=== PATIENT | male | born 1995 | race Caucasian/White ===

== ENCOUNTER 2016-08-21 19:25 | Emergency (ER) | payer OTHER ==
[2016-08-21] MEDS ORDERED: SILVADENE 50 GM TP ONE ×2 (19:42→19:49)
[2016-08-21] MEDS ORDERED: Norco 10/325 MG Tablet PO ONE (19:49)
[2016-08-21] MEDS ORDERED: Norco 10/325 MG Tablet ONE (19:52)
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
[2016-08-21 20:17] VITALS: BP 141/59; PULSE 80; O2SAT 97
== END 2016-08-21 20:17 | disposition home or self-care (01) ==
LOC: ED 19:25
DX: T22.10XA Burn of first degree of shoulder and upper limb, except wrist and hand, unspecified site, initial encounter (principal); X16.XXXA Contact with hot heating appliances, radiators and pipes, initial encounter
CPT/HCPCS: 99283; A9270-GY

== ENCOUNTER 2017-08-04 21:04 | Emergency (ER) | payer BC, OTHER ==
[2017-08-04] MEDS ORDERED: Xopenex 1.25 MG/0.5 ML UD NEBULE IH ONE ×2 (21:13→23:10)
[2017-08-04] MEDS ORDERED: ROCEPHIN 1 Gm-D5w 50 ml Bag** 1 G/50 ML IVPB IV STA (21:14)
[2017-08-04] MEDS ORDERED: Zithromax 250 MG TABLET PO ONE (21:14)
[2017-08-04] MEDS ORDERED: Sodium Chloride 0.9% 1000 ML 1,000 ML IV SCH (21:15)
[2017-08-04] MEDS ORDERED: Sodium Chloride 0.9% 1000 ML 1,000 ML IV STA (21:15)
[2017-08-04] MEDS ORDERED: Magnesium 1 Gm / 100 Ml D5W*** 100 ML IV ONE ×2 (21:16→21:49)
--- NOTE | 2017-08-04 21:21 | ERPHSYRPT ---
- History of Present Illness Time Seen by Provider: 08/04/17 21:04 Source: patient Exam Limitations: no limitations Physician History: FOR THE PAST 15 HOURS PT HAS HAD SHORTNESS OF AIR, CONSTANT CHEST TIGHTNESS, DIAPHORESIS AND COUGH PRODUCTIVE OF GREEN PHLEGM. Allergies/Adverse Reactions: No Known Drug Allergies Allergy (Verified 08/04/17 21:24) Home Medications: No Home Meds [No Home Meds] 1 ea UD 08/20/15 [History] Hx Tetanus, Diphtheria Vaccination/Date Given: Yes (unknown) Hx Influenza Vaccination/Date Given: No Hx Pneumococcal Vaccination/Date Given: No - Review of Systems Respiratory: Cough, Dyspnea Cardiac: Other (CHEST TIGHTNESS) Abdominal/Gastrointestinal: No Abdominal Pain, No Nausea, No Vomiting Endocrine: Excessive Sweating All Other Systems: Reviewed and Negative - Past Medical History Pertinent Past Medical History: No - Past Surgical History Past Surgical History: Yes Neuro Surgical History: No Pertinent History Cardiac: No Pertinent History Respiratory: No Pertinent History Gastrointestinal: No Pertinent History Genitourinary: No Pertinent History Musculoskeletal: No Pertinent History Male Surgical History: No Pertinent History Other Surgical History: rt hand repair - Social History Smoking Status: Never smoker Exposure to second hand smoke: No Drug Use: none Patient Lives Alone: No - Nursing Vital Signs Nursing Vital Signs: Initial Vital Signs Temperature 98.5 F 08/04/17 21:08 Pulse Rate 121 H 08/04/17 21:08 Blood Pressure 174/108 08/04/17 21:08 O2 Sat by Pulse Oximetry 93 L 08/04/17 21:08 Pain Scale Pain Intensity 0 - Physical Exam General Appearance: alert Eye Exam: PERRL/EOMI Ears, Nose, Throat Exam: TMs normal, pharyngeal erythema, other (TONSILLAR ERYTHEMA) Neck Exam: normal inspection Respiratory Exam: airway intact, diminished breath sounds, wheezing Cardiovascular Exam: tachycardia Gastrointestinal/Abdomen Exam: soft, normal bowel sounds Back Exam: normal range of motion Extremity Exam: normal inspection, No pedal edema Neurologic Exam: alert, cooperative Skin Exam: warm, dry - Course Nursing assessment & vital signs reviewed: Yes EKG Interpreted by Me: RATE ([id number]), Sinus Tach, NORMAL AXIS - Radiology Exams Chest X-ray Interpretation: Interpreted by me (INCREASED BRONCHOVASCULAR MARKINGS.) - CT Exams Chest CT Interpretation: Tele-radiologist Report (NO EVIDENCE OF PULMONARY EMBOLISM. THERE IS PATCHY BILATERAL AIRSPACE DISEASE. CLINICAL CORRELATION FOR PNEUMONIA IS RECOMMENDED.) Ordered Tests: Active Orders 24 hr Category Date Time Status Carbide Grinder STAT Care 08/04/17 21:13 Active EKG-ER Only STAT Care 08/04/17 21:12 Active IV Insertion STAT Care 08/04/17 21:12 Active Oxygen-ED Only NASAL CANNULA 2 lpm Care 08/04/17 21:12 Active Pulse Oximetry (ED) STAT Care 08/04/17 21:12 Active CHEST 2 VIEWS (PA AND LAT) Stat Exams 08/04/17 21:12 Taken CHEST WITH CONTRAST [CT] Stat Exams 08/04/17 22:18 Taken AMYLASE Stat Lab 08/04/17 21:36 Completed BLOOD CULTURE Stat Lab 08/04/17 21:36 Received CBC W DIFF Stat Lab 08/04/17 21:36 Completed CMP Stat Lab 08/04/17 21:36 Completed D-DIMER QUANTITATION Stat Lab 08/04/17 21:36 Completed LIPASE Stat Lab 08/04/17 21:36 Completed Lactic Acid Stat Lab 08/04/17 21:35 Completed MAGNESIUM Stat Lab 08/04/17 21:36 Completed NT PRO BNP Stat Lab 08/04/17 21:36 Completed Sputum Culture [CULTURE,SPUTUM] Stat Lab 08/04/17 21:21 Uncollected TROPONIN Q3H Lab 08/04/17 21:36 Completed Respiratory Nebulizer STAT RT 08/04/17 23:43 Completed neb [Respiratory Nebulizer] STAT RT 08/04/17 23:17 Completed Medication Summary Generic Name Dose Route Start Last Admin Trade Name Freq PRN Reason Stop Dose Admin Guaifenesin/Codeine Phosphate 10 ml 08/04/17 23:27 08/04/17 23:30 Robitussin Ac Syrup Unit Dose Cup PO 09/03/17 23:26 10 ml Q4H PRN PRN Administration COUGH Sodium Chloride 1,000 mls @ 100 mls/hr 08/04/17 21:15 08/05/17 01:10 Sodium Chloride 0.9% 1000 Ml IV 09/03/17 21:14 Not Given .Q10H RICCO Discontinued Medications Generic Name Dose Route Start Last Admin Trade Name Freq PRN Reason Stop Dose Admin Albuterol Sulfate 2.5 mg 08/04/17 23:42 08/04/17 23:51 Proventil 2.5 Mg/3 Ml Neb IH 08/04/17 23:43 2.5 mg STAT ONE Administration Albuterol Sulfate Confirm 08/04/17 23:49 Proventil 2.5 Mg/3 Ml Neb Administered 08/04/17 23:50 Dose 2.5 mg IH .STK-MED ONE Azithromycin 500 mg 08/04/17 21:14 08/04/17 21:51 Zithromax 250 Mg Tablet PO 08/04/17 21:15 500 mg STAT ONE Administration Azithromycin Confirm 08/04/17 21:48 Zithromax 250 Mg Tablet Administered 08/04/17 21:49 Dose 500 mg .ROUTE .STK-MED ONE Ceftriaxone Sodium/Dextrose 1 g in 50 mls @ 100 mls/hr 08/04/17 21:14 23:06 Rocephin 1 Gm-D5w 50 Ml Bag IV 08/04/17 21:43 100 mls/hr STAT STA Administration Magnesium Sulfate/Dextrose 100 mls @ 200 mls/hr 08/04/17 21:16 08/04/17 21:50 Magnesium 1 Gm / 100 Ml D5w IV 08/04/17 21:45 200 mls/hr STAT ONE Administration Sodium Chloride 1,000 mls @ 999 mls/hr 08/04/17 21:15 08/04/17 21:50 Sodium Chloride 0.9% 1000 Ml IV 08/04/17 22:15 999 mls/hr .Q1H1M STA Administration Magnesium Sulfate/Dextrose Confirm 08/04/17 21:49 Magnesium 1 Gm / 100 Ml D5w Administered 08/04/17 21:50 Dose 100 mls @ ud IV .STK-MED ONE Ceftriaxone Sodium/Dextrose Confirm 08/04/17 21:49 Rocephin 1 Gm-D5w 50 Ml Bag Administered 08/04/17 21:50 Dose 1 g in 50 mls @ ud IV .STK-MED ONE Levalbuterol HCl 1.25 mg 08/04/17 21:13 08/04/17 23:13 Xopenex 1.25 Mg/0.5 Ml Ud Nebule IH 08/04/17 21:14 1.25 mg STAT ONE Administration Levalbuterol HCl Confirm 08/04/17 23:10 Xopenex 1.25 Mg/0.5 Ml Ud Nebule Administered 08/04/17 23:11 Dose 1.25 mg IH .STK-MED ONE Methylprednisolone Sodium Succinate 125 mg 08/04/17 23:27 08/04/17 23:30 Solu-Medrol 125 Mg IV 08/04/17 23:28 125 mg STAT ONE Administration Methylprednisolone Sodium Succinate Confirm 08/04/17 23:29 Solu-Medrol 125 Mg Administered 08/04/17 23:30 Dose 125 mg .ROUTE .STK-MED ONE Sodium Chloride Confirm 08/04/17 23:11 Sodium Chloride 3 Ml Ud Nebules Administered 08/04/17 23:12 Dose 3 ml IH .STK-MED ONE Lab/Rad Data: Laboratory Result Diagrams 08/04/17 21:36 08/04/17 21:36 Laboratory Results 08/04/17 08/04/17 08/04/17 Range/Units 21:36 21:36 21:36 WBC (4.0-10.5) K/mm3 RBC (4.1-5.6) M/mm3 Hgb (12.5-18.0) gm/dl Hct (42-50) % MCV (78-100) fl MCH (26-32) pg MCHC (32-36) g/dl RDW (11.5-14.0) % Plt Count (150-450) K/mm3 MPV (6-9.5) fl Gran % (36.0-66.0) % Eos # (Auto) (0-0.5) Absolute Lymphs (auto) (1.0-4.6) Absolute Monos (auto) (0.0-1.3) Lymphocytes % (24.0-44.0) % Monocytes % (0.0-12.0) % Eosinophils % (0.00-5.0) % Basophils % (0.0-0.4) % Absolute Granulocytes (1.4-6.9) Basophils # (0-0.4) D-Dimer 600.90 H* (215-500) ng/mL Sodium 141 (137-145) mmol/L Potassium 4.0 (3.5-5.1) mmol/L Chloride 102 (98-107) mmol/L Carbon Dioxide 27 (22-30) mmol/L Anion Gap 15.8 H (5-15) MEQ/L BUN 9 (9-20) mg/dL Creatinine 0.94 (0.66-1.25) mg/dL Estimated GFR > 60.0 ML/MIN Glucose 112 H (74-106) mg/dL Lactic Acid (0.4-2.0) Calcium 9.6 (8.4-10.2) mg/dL Magnesium 1.9 (1.6-2.3) mg/dL Total Bilirubin 0.40 (0.2-1.3) mg/dL AST 63 H (17-59) U/L ALT 111 H (0-50) U/L Alkaline Phosphatase 83 (38-126) U/L Troponin I < 0.012 (0.000-0.034) ng/mL NT-Pro-B Natriuret Pep 17.0 (0-450) pg/mL Serum Total Protein 7.8 (6.3-8.2) g/dL Albumin 4.5 (3.5-5.0) g/dL Amylase 83 (30-110) U/L Lipase 49 (23-300) U/L 08/04/17 08/04/17 Range/Units 21:36 21:35 WBC 10.9 H (4.0-10.5) K/mm3 RBC 5.30 (4.1-5.6) M/mm3 Hgb 15.3 (12.5-18.0) gm/dl Hct 45.0 (42-50) % MCV 84.9 (78-100) fl MCH 28.9 (26-32) pg MCHC 34.0 (32-36) g/dl RDW 13.4 (11.5-14.0) % Plt Count 196 (150-450) K/mm3 MPV 9.8 H (6-9.5) fl Gran % 74.7 H (36.0-66.0) % Eos # (Auto) 0.48 (0-0.5) Absolute Lymphs (auto) 1.31 (1.0-4.6) Absolute Monos (auto) 0.93 (0.0-1.3) Lymphocytes % 12.1 L (24.0-44.0) % Monocytes % 8.6 (0.0-12.0) % Eosinophils % 4.4 (0.00-5.0) % Basophils % 0.2 (0.0-0.4) % Absolute Granulocytes 8.11 H (1.4-6.9) Basophils # 0.02 (0-0.4) D-Dimer (215-500) ng/mL Sodium (137-145) mmol/L Potassium (3.5-5.1) mmol/L Chloride (98-107) mmol/L Carbon Dioxide (22-30) mmol/L Anion Gap (5-15) MEQ/L BUN (9-20) mg/dL Creatinine (0.66-1.25) mg/dL Estimated GFR ML/MIN Glucose (74-106) mg/dL Lactic Acid 1.8 (0.4-2.0) Calcium (8.4-10.2) mg/dL Magnesium (1.6-2.3) mg/dL Total Bilirubin (0.2-1.3) mg/dL AST (17-59) U/L ALT (0-50) U/L Alkaline Phosphatase (38-126) U/L Troponin I (0.000-0.034) ng/mL NT-Pro-B Natriuret Pep (0-450) pg/mL Serum Total Protein (6.3-8.2) g/dL Albumin (3.5-5.0) g/dL Amylase (30-110) U/L Lipase (23-300) U/L - Progress Progress Note: 08/05/17 01:10 LUNGS HAVE GOOD AIR ENTRY NOW WITH BRONCHIAL B.S. OVER ALL HARDING. PT STATES HE FEELS MUCH BETTER. - Departure Time of Disposition: 01:11 Departure Disposition: Home Clinical Impression: BRONCHITIS, TONSILLOPHARYNGITIS, CHEST TIGHTNESS Condition: Stable Critical Care Time: No Referrals: DOCTOR,NO FAMILY [Primary Care Provider] - Instructions: Acute Bronchitis Additional Instructions: FOLLOW UP WITH PRIVATE DOCTOR TOMORROW. Prescriptions: Albuterol 2.5 mg/0.5 ml [PROVENTIL Solution 2.5 MG/0.5 ML] 2.5 mg IH Q4H PRN PRN #60 dose PRN Reason: Shortness Of Breath/Wheezing Guaifenesin/Codeine Phosphate [Robitussin AC Syrup] 10 ml PO Q4H PRN PRN #120 ml PRN Reason: Cough Azithromycin 250 mg [Zithromax 250 MG TABLET] 250 mg PO ZPACK #6 tablet
[2017-08-04 21:40] LABS: BASOPHIL % 0.2 % (0.0-0.4); Basophil (Absolute #) 0.02 (0-0.4); Eosinophil % 4.4 % (0.00-5.0); Eosinophil (Absolute #) 0.48 (0-0.5); Granulocyte Absolute (ANC) 8.11 (1.4-6.9); Granulocytes % 74.7 % (36.0-66.0); Hemoglobin 15.3 gm/dl (12.5-18.0); Lymphocyte (Absolute #) 1.31 (1.0-4.6); Lymphocytes % 12.1 % (24.0-44.0); Mean Cell Volume 84.9 fl (78-100); Mean Corpuscular Hemoglobin 28.9 pg (26-32); Mean Platelet Volume 9.8 fl (6-9.5); Monocyte (Absolute #) 0.93 (0.0-1.3); Monocytes % 8.6 % (0.0-12.0); Platelet Count 196 K/mm3 (150-450); Red Cell Distribution Width 13.4 % (11.5-14.0); White Blood Count 10.9 K/mm3 (4.0-10.5)
[2017-08-04] MEDS ORDERED: Zithromax 250 MG TABLET ONE (21:48)
[2017-08-04] MEDS ORDERED: ROCEPHIN 1 Gm-D5w 50 ml Bag** 1 G/50 ML IVPB IV ONE (21:49)
[2017-08-04] MEDS ORDERED: Sodium Chloride 0.9% 1000 ML 1,000 ML ONE (21:49)
[2017-08-04 22:02] LABS: ALBUMIN 4.5 g/dL (3.5-5.0); ALKALINE PHOSPHATASE 83 U/L (38-126); AMYLASE 83 U/L (30-110); ANION GAP 15.8 MEQ/L (5-15); BLOOD UREA NITROGEN 9 mg/dL (9-20); CHLORIDE 102 mmol/L (98-107); Calcium 9.6 mg/dL (8.4-10.2); Carbon Dioxide 27 mmol/L (22-30); Creatinine 1 0.94 mg/dL (0.66-1.25); Glucose 112 mg/dL (74-106); LIPASE 49 U/L (23-300); SGOT/AST 63 U/L (17-59); SGPT/ALT 111 U/L (0-50); SODIUM 141 mmol/L (137-145); Total Protein 7.8 g/dL (6.3-8.2)
[2017-08-04] MEDS ORDERED: Sodium Chloride 3 ML UD NEBULES IH ONE (23:11)
[2017-08-04] MEDS ORDERED: solu-MEDROL 125 MG IV ONE (23:27)
[2017-08-04] MEDS ORDERED: Robitussin AC Syrup Unit Dose Cup PO PRN (23:27)
[2017-08-04] MEDS ORDERED: solu-MEDROL 125 MG ONE (23:29)
[2017-08-04] MEDS ORDERED: Robitussin AC Syrup Unit Dose Cup ONE (23:29)
[2017-08-04] MEDS ORDERED: PROVENTIL 2.5 MG/3 ML NEB IH ONE ×2 (23:42→23:49)
[2017-08-04 23:56] VITALS: O2SAT 90
[2017-08-05 01:21] VITALS: BP 148/97; PULSE 117
--- NOTE | 2017-08-05 08:39 | XRAY ---
Indication: Chest tightness and shortness of breath. Fever. Elevated d-dimer. Multiple contiguous axial images obtained through the chest using 80 cc Isovue 370 contrast and PE protocol. Comparison: None There is adequate opacification of the pulmonary arteries. No filling defect or pulmonary embolus. Heart is not enlarged. Aorta is normal in course and caliber. A few small nonpathologic mediastinal and left hilar lymph nodes. Examination of the lung parenchyma demonstrates mild bilateral perihilar airspace disease, left greater than right. No consolidation or large effusion. Bony thorax intact. Limited upper abdomen demonstrates diffuse fatty liver and 14.1 cm splenomegaly. Impression: 1. Negative pulmonary embolus. 2. Mild bilateral perihilar airspace disease. 3. Fatty liver and splenomegaly. Comment: Preliminary interpretation was made by [facility]. No discrepancy. CT DI 23.68
--- NOTE | 2017-08-05 08:40 | XRAY ---
Indication: Chest tightness, short of breath, and fever. Comparison: None PA/lateral chest demonstrates minimal perihilar infiltrates, left greater than right. No consolidation or large effusion. Heart is not enlarged. Bony thorax intact. Impression: Bilateral perihilar infiltrates.
== END 2017-08-05 01:21 | disposition home or self-care (01) ==
LOC: ED 21:04
DX: J40 Bronchitis, not specified as acute or chronic (principal); B00.2 Herpesviral gingivostomatitis and pharyngotonsillitis; R07.89 Other chest pain
CPT/HCPCS: 36000; 36415; 71046; 71260; 80053; 82150; 83605; 83690; 83735; 83880; 84484; 85025; 85379; 87040; 93005; 93041; 94640; 96360; 96361; 96365; 96374; 96375; 99283; 99284; J0696; J2930; J3475; A9270-GY